=== PATIENT | male | born 1985 | race African-American/Black ===

== ENCOUNTER 2020-06-25 00:29 | Emergency (ER) | payer SELFPAY ==
[~2020-06-25] VITALS: Ht 188 cm; Wt 110.0 kg
[2020-06-25 01:23] LABS: BASO # 0.1 x10^3/uL (0.0-0.2); BASO % 1 % (0-3); EOS # 0.1 x10^3/uL (0.0-0.7); EOS % 1 % (0-3); HEMATOCRIT 39.1 % (39.0-53.0); HEMOGLOBIN 12.9 g/dL (13.0-17.5); LYMPH % 23 % (24-48); MEAN CORPUSCULAR HEMOGLOBIN 27 pg (25-35); MEAN CORPUSCULAR HGB CONC 33 g/dL (31-37); MEAN CORPUSCULAR VOLUME 81 fL (79-100); MONO # 1.1 x10^3/uL (0.0-1.1); MONO % 12 % (0-9); NEUT # 5.5 x10^3/uL (1.8-7.7); NEUT % 64 % (31-73); PLATELET COUNT 362 x10^3/uL (140-400); RED BLOOD COUNT 4.83 x10^6/uL (4.30-5.70); RED CELL DISTRIBUTION WIDTH 13.9 % (11.5-14.5); WHITE BLOOD COUNT 8.7 x10^3/uL (4.0-11.0)
--- NOTE | 2020-06-25 01:25 | PHYS DOC ---
General Adult EDM: Chief Complaint: ABDOMINAL PAIN HPI: HPI: Patient is a 35 year old male presents with a chief complaint of left flank pain. Patient states pain started yesterday comes and goes and radiates to left lower abdomen. Has had associated nausea without vomiting. Review of Systems: Review of Systems: Constitutional: Denies fever or chills. [] Eyes: Denies change in visual acuity. [] HENT: Denies nasal congestion or sore throat. [] Respiratory: Denies cough or shortness of breath. [] Cardiovascular: Denies chest pain or edema. [] GI: Denies abdominal pain, nausea, vomiting, bloody stools or diarrhea. [] : Denies dysuria. [positive flank pain] Musculoskeletal: Denies back pain or joint pain. [] Integument: Denies rash. [] Neurologic: Denies headache, focal weakness or sensory changes. [] Endocrine: Denies polyuria or polydipsia. [] Lymphatic: Denies swollen glands. [] Psychiatric: Denies depression or anxiety. [] Heart Score: Risk Factors: Risk Factors: DM, Current or recent (<one month) smoker, HTN, HLP, family history of CAD, obesity. Risk Scores: Score 0 - 3: 2.5% MACE over next 6 weeks - Discharge Home Score 4 - 6: 20.3% MACE over next 6 weeks - Admit for Clinical Observation Score 7 - 10: 72.7% MACE over next 6 weeks - Early Invasive Strategies Physical Exam: PE: Constitutional: Well developed, well nourished, no acute distress, non-toxic appearance. [] HENT: Normocephalic, atraumatic, bilateral external ears normal, oropharynx moist, no oral exudates, nose normal. [] Eyes: PERRLA, EOMI, conjunctiva normal, no discharge. [] Neck: Normal range of motion, no tenderness, supple, no stridor. [] Cardiovascular:Heart rate regular rhythm, no murmur [] Lungs & Thorax: Bilateral breath sounds clear to auscultation [] Abdomen: Bowel sounds normal, soft, no tenderness, no masses, no pulsatile masses. [] Skin: Warm, dry, no erythema, no rash. [] Back: No tenderness, no CVA tenderness. [] Extremities: No tenderness, no cyanosis, no clubbing, ROM intact, no edema. [] Neurologic: Alert and oriented X 3, normal motor function, normal sensory function, no focal deficits noted. [] Psychologic: Affect normal, judgement normal, mood normal. [] Current Patient Data: Vital Signs: Vital Signs Date Time Temp Pulse Resp B/P (MAP) Pulse Ox O2 Delivery O2 Flow Rate FiO2 06/25/20 00:50 98.1 79 24 169/98 (121) 99 Room Air 98.1 EKG: EKG: [] Radiology/Procedures: Radiology/Procedures: [] Course & Med Decision Making: Course & Med Decision Making Pertinent Labs and Imaging studies reviewed. (See chart for details) []Initial workup cbc cmp ua ct abdomen pel. Patient declined pain medications at this time. Discussed CT finds with patient. Lower lobe infiltrate bilateral with left side small pleural effusion Patient denies any chest pain shortness of breath or cough. Patient denies any known contact for covid. Will obtain covid swap. Rx patient on zithromax and ultram. Dose of rocephin zithromax in ER. Adina Disclaimer: Adina Disclaimer: This electronic medical record was generated, in whole or in part, using a voice recognition dictation system. Departure Departure Impression: Primary Impression: Flank pain Additional Impressions: Pneumonia Person under investigation for COVID-19 Disposition: 01 HOME, SELF-CARE Condition: STABLE Referrals: NO PCP (PCP) Patient Instructions: Flank Pain Scripts Azithromycin (ZITHROMAX) 250 Mg Tablet 1 PKG PO UD, #6 TAB Prov: EMILI OSORIO DO 06/25/20 Tramadol Hcl (ULTRAM) 50 Mg Tablet 1 TAB PO PRN Q6HRS PRN for pain MDD 4 Tablet(s) for 7 Days, #28 TAB 0 Refills Prov: EMLII OSORIO DO 06/25/20 Justicifation of Admission Dx: Justifications for Admission: Justification of Admission Dx: N/A EMILI OSORIO DO Jun 25, 2020 01:24
[2020-06-25 01:53] LABS: CALCIUM 8.5 mg/dL (8.5-10.1); CREATININE 1.2 mg/dL (0.7-1.3); GFR 82.9; POTASSIUM 3.6 mmol/L (3.5-5.1)
[2020-06-25 01:59] LABS: ALBUMIN 3.3 g/dL (3.4-5.0); ALBUMIN/GLOBULIN RATIO 0.8 (1.0-1.7); TOTAL BILIRUBIN 0.4 mg/dL (0.2-1.0); TOTAL PROTEIN 7.5 g/dL (6.4-8.2)
--- NOTE | 2020-06-25 02:04 | RAD ---
PQRS Compliance Statement: One or more of the following individualized dose reduction techniques were utilized for this examination: 1. Automated exposure control 2. Adjustment of the mA and/or kV according to patient size 3. Use of iterative reconstruction technique CT ABDOMEN PELVIS WO CONTRAST Clinical Indication: Reason: left flank pain / Spl. Instructions: / History: Comparison: None. Technique: Helical CT imaging of the abdomen and pelvis is performed without IV or oral contrast. Findings: Evaluation of solid organs and bowel is limited without oral and IV contrast, decreasing sensitivity for detection of pathology. Moderate consolidations in the posterior lower lobes bilaterally. Cardiac size is normal. Trace left pleural effusion. Gallbladder is contracted. The liver, spleen, pancreas, adrenal glands, and abdominal aorta caliber are normal. There is tiny fat-containing umbilical hernia. There is no renal, ureteral, or bladder calculus. There is no perinephric stranding or hydronephrosis. No obvious abnormality of the stomach. No dilated small bowel. The appendix is normal. No colon wall thickening. There is scattered stool in the colon. There is no abdominal adenopathy or free fluid. The urinary bladder is mostly decompressed, no obvious abnormality. The prostate and seminal vesicles are normal. No pelvic free fluid is seen. Bilateral inguinal lymph nodes may be reactive. Transitional lumbosacral anatomy, disc space of S1/S2. There is mild grade 1 anterolisthesis of L5 on S1. There is vacuum disc phenomenon and spondylitic disc of L5/S1. There is L5 spondylolysis. IMPRESSION: 1. No acute abdominal or pelvic abnormality. No obstructive uropathy. 2. Trace left pleural effusion. Moderate consolidations in the posterior lower lobes bilaterally may be atelectasis or early pneumonia. Electronically signed by: Ted Newby MD (06/25/2020 2:01 AM) [facility]
[2020-06-25] MEDS ORDERED: TRAM-48 PO (02:36)
[2020-06-25] MEDS ORDERED: AZIT250T PO (02:36)
[2020-06-25] MEDS ORDERED: cefTRIAXone IV Push 1 GM VIAL. IVP ONE ×2 (02:44→02:45)
[2020-06-25] MEDS ORDERED: AZITHROMYCIN 250 MG TABLET. PO ONE (02:45)
[2020-06-25 03:00] VITALS: BP 159/103
--- NOTE | 2020-06-27 10:20 | NUR ---
IP: Informed pt of negative COVID results. Pt verbalized understanding.
== END 2020-06-25 03:07 | disposition home or self-care (01) ==
LOC: ER 00:29
DX: R10.32 Left lower quadrant pain (principal); R11.0 Nausea; Z20.818 Contact with and (suspected) exposure to other bacterial communicable diseases
CPT/HCPCS: 36415; 74176; 80053; 85025; 96374; 99285; J0696; U0003